=== PATIENT | female | born 1995 | race Caucasian/White ===

== ENCOUNTER → 2020-03-31 12:42 | Outpatient (CLI) | payer OTHER, SELFPAY ==
--- NOTE | ~2020-03-31 | US_ITS ---
EXAMINATION: US OB >= 14 weeks Fetus DATE: 03/31/2020 13:18 INDICATION: Second trimester anatomic survey TECHNIQUE: Real-time ultrasound of the pelvis was performed. COMPARISON: None. FINDINGS: There is a single living fetus in breech presentation. The placenta is anterior. heart rate is 168 beats per minute (bpm). cardiac activity and movement are noted. The amniotic fluid index is subjectively normal. The following anatomy was identified as normal: 4 chamber heart 3 vessel cord cord insertion kidneys urinary bladder stomach spine diaphragm ventricles cisterna magna cerebellum The following biometric data were obtained: Biparietal diameter (BPD): 4.1 cm; head circumference (HC): 15.8 cm; abdominal circumference (AC): 13 .6 cm; femur length (FL): 2.9 cm. These measurements are concordant. Estimated weight is 269 g +/- 40 g, which correlates with the 64th percentile when 08/27/2020 is used as estimated date of delivery. As single measurements, these parameters are each equal to the following estimated gestational ages w ith ranges of +/- 2 standard deviations: BPD: 18 weeks 3 days ( 16 weeks 5 days - 20 weeks 1 days). HC: 18 weeks 5 days ( 17 weeks 2 days - 20 weeks 1 days). AC: 19 weeks 0 days ( 17 weeks 0 days - 21 weeks 1 days). FL: 19 weeks 0 days ( 17 weeks 2 days - 20 weeks 6 days). estimated gestational age based solely on measurements from this exam is 18 weeks 6 days +/- 1 weeks 2 days. IMPRESSION: 1. Single living fetus in breech presentation. 2. Estimated weight is 269 g +/- 40 g, which correlates with the 64th percentile when 08/27/2020 is used as estimated date of delivery. Reviewed, dictated and finalized at location A. MOTOR DRIVER IMPRESSION: 1. Single living fetus in breech presentation. 2. Estimated weight is 269 g +/- 40 g, which correlates with the 64th per centile when 08/27/2020 is used as estimated date of delivery.
== END ==
PROVIDERS: Visit Provider Obstetrics & Gynecology
DX: Z34.92 Encounter for supervision of normal pregnancy, unspecified, second trimester (principal); Z3A.18 18 weeks gestation of pregnancy
CPT/HCPCS: 76805

== ENCOUNTER → 2020-07-21 13:56 | Outpatient (CLI) | payer OTHER, SELFPAY ==
--- NOTE | ~2020-07-21 | US_ITS ---
EXAMINATION: US OB follow up DATE: 07/21/2020 14:26 INDICATION: Size less than dates. TECHNIQUE: Real-time ultrasound of the pelvis was performed. COMPARISON: Ultrasound 03/31/2020 FINDINGS: There is a single living fetus in vertex presentation. The placenta is fundal and anterior. he art rate is 143 beats per minute (bpm). The amniotic fluid index is 16.5 cm, which is normal. The following biometric data were obtained: Biparietal diameter (BPD): 8.6 cm; head circumference (HC): 31.0 cm; abdominal circumference (AC): 29 .6 cm; femur length (FL): 6.5 cm. These measurements are concordant. Estimated weight is 2279 g +/- 342 g, which correlates with 22nd percentile when 08/27/20 is used as estimated date of delivery. As single measurements, these parameters are each equal to the following estimated gestational ages w ith ranges of +/- 2 standard deviations: BPD: 34 weeks 6 days (31 weeks 5 days - 38 weeks 0 days). HC: 34 weeks 5 days (31 weeks 5 days - 37 weeks 5 days). AC: 33 weeks 4 days (30 weeks 5 days - 36 weeks 4 days). FL: 33 weeks 3 days (30 weeks 4 days - 36 weeks 3 days). estimated gestational age based solely on measurements from this exam is 34 weeks 1 days +/- 2 weeks 3 days. IMPRESSION: 1. Single living fetus in vertex presentation. 2. Estimated weight is 2279 g +/- 342 g, which correlates with 22nd percentile when 08/27/20 is used as estimated date of delivery. Reviewed, dictated and finalized at location A. [employer] SHOP FOREMAN IMPRESSION: 1. Single living fetus in vertex presentation. 2. Estimated weight is 2279 g +/- 342 g, which correlates with 22nd perc entile when 08/27/20 is used as estimated date of delivery.
== END ==
PROVIDERS: Visit Provider Obstetrics & Gynecology
DX: O36.5933 Maternal care for other known or suspected poor fetal growth, third trimester, fetus 3 (principal); Z3A.34 34 weeks gestation of pregnancy
CPT/HCPCS: 76816

== ENCOUNTER 2020-08-20 11:42 | Outpatient (CLI) | payer OTHER, SELFPAY ==
[2020-08-20 12:30] LABS: Hematocrit 37.2 % (37.0-47.0); Hemoglobin 12.4 g/dL (12.0-15.0); Mean Corpuscular HGB Conc 33.3 g/dl (32-36); Mean Corpuscular Hemoglobin 29.4 pg (26-34); Mean Corpuscular Volume 88.2 fl (80-100); Mean Platelet Volume 10.2 fl (7.4-10.4); Platelet Count Result 227 k/mm3 (150-375); Red Blood Count 4.22 M/mm3 (4.2-5.4); Red Cell Distribution Width 14.3 % (11.5-14.5); White Blood Count 11.4 K/mm3 (4.5-10.0)
[2020-08-22 07:18] LABS: Rapid Plasma Reagin Non-Reactive (NonReactive)
== END 2020-08-20 11:43 | disposition home or self-care (01) ==
PROVIDERS: PCP Family Medicine; Visit Provider Obstetrics & Gynecology Gynecology
DX: Z34.93 Encounter for supervision of normal pregnancy, unspecified, third trimester (principal); Z3A.00 Weeks of gestation of pregnancy not specified
CPT/HCPCS: 36415; 85027; 86592; 86850; 86900; 86901

== ENCOUNTER 2020-08-22 05:24 | Inpatient (IN) | payer OTHER, SELFPAY ==
[2020-08-22] VITALS (50 sets, daily range): BP systolic 72–154; BP diastolic 49–76; PULSE 56–102; RESP 14–19; TEMP 36.2–36.8; O2SAT 97–100; BMI 24.8
--- NOTE | 2020-08-22 05:24 | LDADM ---
This patient, Kelin Cline, was admitted to Labor/Delivery/Recovery 120 on 08/22/20 at 05:24. Plans for labor, pain management and were discussed with patient. Patient/family oriented to hospital policies and general routines including ID bracelet, bed and alarms, visiting hours, pain management, procedures, bathroom and other care routines, personal items, smoking policy, room service/diet and guest tray routines, security routines, and visiting hours. Patient/Family are encouraged to report perceived risks to care and to ask questions if they do not understand what they are told or what they should do. See OBIX for further documentation.
[2020-08-22] MEDS: LACTATED RINGERS 1,000 ML 999 ML IV CONT ×3 (05:55→07:45)
--- NOTE | 2020-08-22 06:47 | WPDANESEPPF ---
Anes - Initial Pre Proc Eval Procedure: Operation Date: 08/22/20 07:30 Proposed Procedures p Repeat Section - Julissa Ferreira MD Date/Time: 08/22/20 06:47 Surgeon: Paulino Aquino MD Pre Op Diagnosis: Scheduled Patient Data Age: 25 Gender: F Height: 1.7 m Weight: 72 kg Last Vital Signs Pulse 59 L 08/22/20 06:15 BP 105/68 08/22/20 06:15 Allergies Allergy/AdvReac Type Severity Reaction Status Date / Time No Known Allergies Allergy Verified 07/28/20 14:41 Home Medications Medication Instructions Recorded Confirmed Type PNV cmb#95-ferrous fumarate-FA 1 tablet PO DAILY 07/28/20 08/22/20 History [] Patient hx anesthesia problems: none Family hx anesthesia problems: none PMFSH Family History Family History (Updated 07/28/20 @ 14:45 by Avila Medina RN) Father Skin cancer Social History Social History Smoking status: Never smoker Second hand tobacco smoke exposure: No Substance use: never Gender identity (if verbalized by the patient): Female Spiritual care concerns: No Anes - Eval Final PreProcedure Day of Procedure 08/22/20 06:47 Patient weight: normal Heart: regular rate and rhythm Lungs: clear to auscultation and normal air movement Airway: Mallampati scale class II Neurological: alert and oriented Last oral intake: >/= 8 hours ASA classification: II Emergent: no Anesthetic plan: proceed Anesthesia type and monitoring: regional spinal Informed Consent: The patient's anesthetic plan and its attendant risks and benefits were discussed with the patient/family/POA. Questions were solicited and answers provided to the satisfaction of the patient/family/POA.
--- NOTE | 2020-08-22 07:11 | PM.IMHP ---
H&P: HPI History of Present Illness Date/Time: 08/22/20 07:11 Chief Complaint: repeat csection Narrative: 24 yo here at 39 wks EGA for repeat LTCS. uncomplicated. A+, Rubella Immune, RPR -, HBSAg -, HIV -, and GBS -. Review of Systems Review of Systems: Narrative: not repeated day of surgery; patient states no changes in status PMFSH Surgical History Surgical History (Updated 08/22/20 @ 07:15 by Julissa Ferreira MD) History of Family History Family History (Updated 07/28/20 @ 14:45 by Avila Medina, RN) Father Skin cancer Social History Social History Smoking status: Never smoker Second hand tobacco smoke exposure: No Substance use: never Gender identity (if verbalized by the patient): Female Spiritual care concerns: No Meds Home Medications and Allergies Home Medications Medication Instructions Recorded Confirmed Type PNV cmb#95-ferrous fumarate-FA 1 tablet PO DAILY 07/28/20 08/22/20 History [] Allergies Allergy/AdvReac Type Severity Reaction Status Date / Time No Known Allergies Allergy Verified 07/28/20 14:41 Vital Signs Vital Signs - 24 hr 08/22/20 06:15 Pulse Rate 59 L Blood Pressure 105/68 Exam Const: General: healthy appearing and comfortable Resp: Effort & Inspection: normal respiratory effort GI: GI Palp: Yes Soft to palpation and Yes Other GI palpation findings present (gravid with FH 37; FHTs reactive) Assessment and Plan Assessment and plan (1) 39 weeks gestation of : Code(s): Z3A.39 - 39 weeks gestation of Status: Acute (2) History of : Code(s): Z98.891 - History of uterine scar from previous surgery Status: Acute Assessment and Plan: declines trial of labor and chooses to proceed with repeat LTCS.
--- NOTE | 2020-08-22 07:16 | WPDHPUPDATE1 ---
History and Physical Update Update Date/Time: 08/22/20 07:16 History and Physical has been reviewed, including an updated exam of the patient. There are NO changes in the patient's condition. Risks, benefits, and alternatives have been discussed and questions answered. Patient agrees to proceed with procedure.
[2020-08-22] MEDS: ceFAZolin 2 GM/D5W 50 ML 2 GM/50 ML BAG IVPB (07:28)
--- NOTE | 2020-08-22 08:07 | PM.PROC ---
Procedure Note - Detailed Date of procedure: 08/22/20 Pre-op diagnosis: Scheduled IUP 39 wks Previous csection Post-op diagnosis: same Procedure performed: Repeat LTCS Description of procedure: The patient was taken to the operating room and placed in the dorsal supine position under spinal anesthesia. She was prepped and draped in the usual sterile fashion. A Pfannenstiel skin incision was made through her prior incision. The incision is carried down to the fascia which was nicked in the midline. The incision is extended laterally with Guo scissors. Bleeding vessels in the subcutaneous tissue are Bovie cauterized for hemostasis. the fascia is grasped with [facility] and dissected off using sharp and blunt dissection. The peritoneum was entered bluntly and extended with blunt traction. The bladder blade is placed. The vesicouterine peritoneum was grasped with a Peon and incised with Metzenbaum. The incision is extended laterally. Bladder flap was created digitally. The lower uterine segment was incised in a transverse fashion with the scalpel. Membranes were ruptured and clear fluid is noted the incision was extended laterally with blunt traction. The 's head was brought up into the incision and delivered while the speech correction assistant applied fundal pressure. Nuchal cord x1 is reduced and the remainder of the infant was fully delivered. Cord was clamped and cut and the infant handed to the waiting nursery nurse. Uterus is exteriorized and cleared of all clots and debris. The uterine incision was closed using 0 Monocryl in a running locked fashion with the same suture being used to imbricate. Good hemostasis is noted. The cul-de-sac is irrigated and the uterus returned to the abdomen. Gutters are irrigated and the incision was again inspected and noted to be hemostatic. Fascia was then closed using 0 Vicryl in a running fashion. Subcutaneous tissues are irrigated and made hemostatic using Bovie cautery. Skin incision was closed using 4 0 Vicryl in a subcuticular fashion. Sponge, instrument, and needle counts are correct per the OR staff. Anesthesia: spinal Surgeon: Julissa Ferreira MD Estimated blood loss (mL): 600 Drains: Yes (asher) Packing: No Pathology: none sent Complications: No immediate complications Condition: stable Disposition: PACU Findings: female; 7#4oz with 9/9 ; nuchal cord x 1 reduced; normal appearing tubes, ovaries, and uterus
--- NOTE | 2020-08-22 08:13 | PM.OBDSVD ---
DS: Admitting Diagnosis Admitting Diagnosis Admitting Diagnosis: IUP 39 wks for repeat LTCS DS: Discharge Diagnosis Discharge Diagnosis (1) 39 weeks gestation of : Code(s): Z3A.39 - 39 weeks gestation of Status: Acute (2) delivery delivered: Code(s): O82 - Encounter for delivery without indication Status: Acute (3) History of : Code(s): Z98.891 - History of uterine scar from previous surgery Status: Acute OB - DS: Summary OB Procedures : Ultrasound OB Procedures Intrapartum: low cervical, transverse OB Procedures: : None Peripartum Data Infant Delivery Method: Section Procedures: Procedures Operation Date: 08/22/20 07:30 <No data on this case meets the specified criteria> complications: none Status at Discharge Functional status at discharge: independent ambulation Overall status at discharge: patient is progressing back to baseline Time Spent with Patient Time attestation: Total time spent providing and/or coordinating discharge services: Discharge Plan Discharge Attending physician on discharge: Julissa Ferreira Discharging Clinician: Julissa Ferreira Anticipated Discharge Date/Time: 08/25/20 08:14 Patient Disposition: Home, Self-Care Activity: may shower, may drive after 2 weeks and pelvic rest Diet: regular Wound Care Instructions: incision open to air Patient Instructions: Antibiotic Form Stand Alone Forms: General Discharge Information Follow-up/Referrals: Paulino Aquino MD [Physician] - 1 Week Discharge Medications: New hydrocodone-acetaminophen 5-325 mg Tablet 1 tablet PO Q3H PRN (Reason: Moderate Pain (4-6)) Qty: 30 RF: 0 Continued PNV cmb#95-ferrous fumarate-FA [] 28 mg iron- 800 mcg Tablet 1 tablet PO DAILY RF: 0 Date of admission: 08/22/20 05:24 Primary Care Provider: Wil George Admitting Provider: Paulino Aquino Attending physician on admission: Paulino Aquino Condition: Stable
[2020-08-22] MEDS: OXYTOCIN 30 UNITS/NS 500 ML 30 UNITS/500 ML BAG 125 UNITS IV CONT (08:54)
--- NOTE | 2020-08-22 11:05 | PC.NURSE ---
Patient transferred to post room # 292 per hospital bed. Support person present. Oriented to unit, room, information board, rooming in, admission packet and security measures. Patient verbalizes understanding.
--- NOTE | 2020-08-22 11:35 | PC.NURSE ---
Mother called out for assist with feeding. Consulted with patient, mother reports fed well first feeding. Mother states she has difficulties with left breast with first child and attempting with this child. M Reviewed feeding cues, frequencies, duration of feedings, feeding elimination flow sheet, and signs of adequate intake. Demonstrated stimulation techniques to wake for feeding. Assisted with to breast. Reviewed positioning/alignment in cross cradle, holding breast in U hold and guided asymmetrical latch on. Infant was able to latch within a few attempts. nursed eagerly, with steady draws and frequent swallowing noted. Reviewed signs of a correct latch, effective nursing and suck swallow ratio. was able to maintain latch. Mother reported tenderness at times, had slipped to shallow latch. Demonstrated how to adjust latch more deeply while feeding. Mother quickly reports she can feel is latched more deeply and has minimal tenderness. Suggested to stimulate while feeding to keep awake and nursing effectively for increased stimulation and increased intake. Instructed mother to call out for RN assistance if she is unable to latch for feeding or she has discomfort with nursing
[2020-08-22] MEDS: KETOROLAC 30 MG/ML VIAL (*BKC) IV PUSH (12:00)
[2020-08-22] MEDS: HYDROcodone/acetaminophen (*CRX) 10-325 MG TABLET 1 TAB PO ×2 (12:00→17:06)
[2020-08-22] MEDS: SIMETHICONE 80 MG TAB.CHEW PO (12:01)
[2020-08-22] MEDS: LANOLIN (LANSINOH) 7.5 GM CREAM 1 APPLIC TOPICAL (12:01)
[2020-08-22] MEDS: ONDANSETRON INJ 4 MG/2 ML VIAL IV PUSH (12:42)
[2020-08-22] MEDS: KCL 20 MEQ/D5/0.45% SOD CHL 1,000 ML 125 ML IV CONT (12:42)
--- NOTE | 2020-08-22 12:59 | PC.NURSE ---
Observed mother is able to independently latch with appropriate positioning/alignment. She denies any nipple discomfort, is nursing eagerly with long draw, freq rhythmic draws and occasional swallowing noted. Parents reports quickly fell asleep last feeding. Advised to stimulate while feeding to keep infant awake and nursing effectively. Requested parents call out if infant does not nurse at least 15 minutes.
[2020-08-22] MEDS: IBUPROFEN 600 MG TABLET PO (21:22)
[2020-08-22] MEDS: HYDROcodone/acetaminophen (*CRX) 5-325 MG TABLET 1 TAB PO (21:23)
[2020-08-23 04:37] VITALS: BP 96/50; PULSE 69; RESP 16; TEMP 36.3; O2SAT 99
[2020-08-23 05:43] LABS: Basophils Percent Auto 0.2 % (0.2-1.2); Eosinophils Absolute Auto 0.1 K/mm3 (0-0.3); Eosinophils Percent Auto 0.6 % (0-4.4); Hematocrit 30.9 % (37.0-47.0); Hemoglobin 10.2 g/dL (12.0-15.0); Immature Granulocyte Absolute 0.08 K/mm3 (0.00-0.031); Immature Granulocyte Percent A 0.5 % (0-0.5); Lymphocytes Absolute Auto 2.31 K/mm3 (0.9-3.2); Lymphocytes Percent Auto 13.9 % (18.3-44.2); Mean Corpuscular Hemoglobin 29.4 pg (26-34); Mean Platelet Volume 10.4 fl (7.4-10.4); Monocytes Absolute Auto 0.8 K/mm3 (0.1-0.6); Monocytes Percent Auto 4.8 % (2.6-8.5); Neutrophils Absolute Auto 13.3 K/mm3 (1.3-6.7); Platelet Count Result 200 k/mm3 (150-375); Red Blood Count 3.47 M/mm3 (4.2-5.4); Red Cell Distribution Width 14.5 % (11.5-14.5); White Blood Count 16.7 K/mm3 (4.5-10.0)
[2020-08-23 07:30] VITALS: BP 100/56; PULSE 71; RESP 18; TEMP 36.9; O2SAT 100
--- NOTE | 2020-08-23 07:37 | P.PNOB_ITS ---
OB - PN: Subj Subjective Date/time seen: 08/23/20 07:37 Patient comments: no complaints and pain well controlled baby status: doing well OB - PN: Obj Data Labs CBC & Chem 7: 08/23/20 04:10 Labs: Laboratory Results - last 24 hr 08/23/20 04:10 WBC 16.7 H RBC 3.47 L Hgb 10.2 L Hct 30.9 L MCV 89.0 MCH 29.4 MCHC 33.0 RDW 14.5 Plt Count 200 MPV 10.4 Immature Gran % (Auto) 0.5 Neut % (Auto) 80.0 H Lymph % (Auto) 13.9 L [place] % (Auto) 4.8 Eos % (Auto) 0.6 Baso % (Auto) 0.2 Lymph # (Auto) 2.31 [place] # (Auto) 0.8 H Eos # (Auto) 0.1 Baso # (Auto) 0.0 Abs Immat Gran (auto) 0.08 H Absolute Neuts (auto) 13.3 H Absolute Nucleated RBC 0.0 Nucleated RBC % 0.0 OB - PN A/P Assessment and Plan (1) delivery delivered: Code(s): O82 - Encounter for delivery without indication Status: Acute Assessment and Plan: postop csection doing well continue routine care Time Spent With Patient Time: Total time spent is greater than 50% in coordination of care (as documented) at patient's floor/unit and/or counseling patient: Exam Narrative: Exam Narrative: inc c/d/i : Bimanual exam- vagina & uterus: other (Uterus firm, nt @U)
[2020-08-23] MEDS: HYDROcodone/acetaminophen (*CRX) 5-325 MG TABLET 1 TAB PO ×2 (07:58→20:50)
[2020-08-23] MEDS: DOCUSATE SODIUM 100 MG CAPSULE PO ×2 (07:58→16:20)
[2020-08-23] MEDS: IBUPROFEN 600 MG TABLET PO ×3 (07:59→20:51)
[2020-08-23] MEDS: MULTIVIT/MIN/PREN/FOL AC/IRON TABLET 1 TAB PO (08:58)
--- NOTE | 2020-08-23 10:16 | WPDANLDPN2 ---
Anes-Prog Note L&D Date/Time: 08/23/20 10:16 Comfortable throughout: section Neuraxial method: spinal Epidural/Spinal procedure site: clean & non-tender Neuro status: Neuro function grossly intact. Cardiovascular status: normal Respiratory status: normal Airway patency: baseline Mental status: baseline Post-Op hydration status: normal Vital Signs: Last Vital Signs Temp 36.9 C 08/23/20 07:30 Pulse 71 08/23/20 07:30 Resp 18 08/23/20 07:30 BP 100/56 L 08/23/20 07:30 Pulse Ox 100 08/23/20 07:30 Pain score (VAS): 0 I/O: Intake & Output 08/22/20 08/23/20 08/23/20 23:59 07:59 15:59 Intake Total 600 Output Total 600 2400 200 Balance 0 -2400 -200 Post-procedural complaints: none Patient feedback: Patient satisfied with anesthetic care.
--- NOTE | 2020-08-23 10:16 | WPDANLDNPN2 ---
Anes-Prog Note L&D-Neuraxial Date/Time: 08/23/20 10:16 Neuraxial medications: intrathecal PF morphine Opiod-related complaints: none Patient feedback: Patient satisfied with post-operative pain management.
--- NOTE | 2020-08-23 10:30 | PC.NURSE ---
Consult with pt., mother reports she has mostly bottle fed due to difficulties with waking and latch. Discussed stimulation and milk supply, suggesting mother initiate pumping. Mother states she will discuss feeding infant with FOB. Mother will call out if she wishes assist with latch or pumping.
[2020-08-23] MEDS: HYDROcodone/acetaminophen (*CRX) 10-325 MG TABLET 1 TAB PO ×3 (11:17→23:30)
[2020-08-23 20:00] VITALS: BP 108/71; PULSE 94; RESP 16; TEMP 36.4; O2SAT 98
[2020-08-24] MEDS: HYDROcodone/acetaminophen (*CRX) 5-325 MG TABLET 1 TAB PO ×2 (05:35→09:06)
[2020-08-24] MEDS: IBUPROFEN 600 MG TABLET PO (05:35)
[2020-08-24 07:30] VITALS: BP 114/62; PULSE 62; RESP 18; TEMP 36.8; O2SAT 100
--- NOTE | 2020-08-24 07:42 | PM.OBPNVD ---
OB - PN: Subj Subjective Date/time seen: 08/24/20 07:42 Patient comments: no complaints and pain well controlled baby status: doing well OB - PN: Obj Data Labs CBC & Chem 7: 08/23/20 04:10 OB - PN A/P Assessment and Plan (1) delivery delivered: Code(s): O82 - Encounter for delivery without indication Status: Acute Assessment and Plan: Doing well. Prefers dc home today. Declines control. Discussed not recommended to become for at least 9 months. Pt. voiced understanding. Time Spent With Patient Time: Total time spent is greater than 50% in coordination of care (as documented) at patient's floor/unit and/or counseling patient: Exam Narrative: Exam Narrative: inc c/d/i : Bimanual exam- vagina & uterus: other (Uterus firm, nt @U)
[2020-08-24] MEDS: DOCUSATE SODIUM 100 MG CAPSULE PO (09:07)
[2020-08-24] MEDS: MULTIVIT/MIN/PREN/FOL AC/IRON TABLET 1 TAB PO (09:07)
[2020-08-26 07:53] VITALS: BP 108/69; PULSE 69; RESP 16; TEMP 37; O2SAT 99
== END 2020-08-24 12:50 | disposition home or self-care (01) | DRG 788 ==
LOC: ANHLDR 08:14 → ANHOB2 15:25 → ANHLDR 08-25 10:21 → ANHOB2 08-25 10:21
PROVIDERS: Admitting Provider Obstetrics & Gynecology Gynecology; PCP Family Medicine; Visit Provider Obstetrics & Gynecology Gynecology
PROC: 10D00Z1 Extraction of Products of Conception, Low, Open Approach (ICD-10-PCS; CPT 59514; principal; 2020-08-22 07:30)
DX: O34.211 Maternal care for low transverse scar from previous cesarean delivery (principal); Z37.0 Single live birth; Z3A.39 39 weeks gestation of pregnancy; O69.81X0 Labor and delivery complicated by cord around neck, without compression, not applicable or unspecified
CPT/HCPCS: 36415; 85025; A9270; J0131; J0690; J1885; J2274; J2405; J2590; J3480; J7120